=== PATIENT | female | born 2000 | race Caucasian/White ===

== ENCOUNTER 2018-02-16 20:00 | Emergency (ER) | payer OTHER ==
[2018-02-16] MEDS: NS 1,000 ML IV (21:45)
[2018-02-16] MEDS: ONDANSETRON 4MG/2ML VIAL (J2405) IV (21:45)
[2018-02-16 22:19] LABS: BASO % 0.3 % (0.0-1.0); EOS # 0.2 10^3/uL (0.0-0.50); EOS % 1.9 % (0.0-3.0); HEMATOCRIT 39.2 % (36.0-47.0); HEMOGLOBIN 13.4 g/dl (12.0-16.0); IMMATURE GRANULOCYTE % 0.2 % (0-3.0); LYMPH # 2.8 10^3/uL (1.5-6.5); LYMPH % 30.3 % (24.0-44.0); MEAN CORPUSCULAR HEMOGLOBIN 29.5 pg (27.0-33.0); MEAN CORPUSCULAR HGB CONC 34.2 g/dl (32.0-36.5); MEAN CORPUSCULAR VOLUME 86.2 fl (80.0-96.0); MONO # 0.8 10^3/uL (0.0-0.8); MONO % 8.7 % (0.0-5.0); NEUTROPHILS # 5.4 10^3/uL (1.8-7.7); NEUTROPHILS % 58.6 % (36.0-66.0); PLATELET COUNT, AUTOMATED 278 10^3/uL (150-450); RED BLOOD COUNT 4.55 10^6/uL (4.00-5.40); RED CELL DISTRIBUTION WIDTH 12.3 % (11.5-14.5); WHITE BLOOD COUNT 9.2 10^3/uL (4.0-10.0)
[2018-02-16] MEDS: MORPHINE 2 MG/ML 1ML SYRINGE (J2270) IV (22:30)
[2018-02-16 22:37] LABS: KETONE, URINE AUTO RFX NEGATIVE (NEGATIVE); MUCUS, URINE RFX SMALL (NEGATIVE); NITRITE, URINE AUTO RFX NEGATIVE (NEGATIVE); RBC, URINE AUTO RFX 4 /HPF (0-3); SPECIFIC GRAVITY UR AUTO RFX 1.019 (1.002-1.035); SQUAM EPITHELIAL CELL UR AURFX 6 /HPF (0-6)
[2018-02-16 22:40] LABS: HCG, SERUM QUANTITATIVE < 1.0 MIU/ML
[2018-02-16 22:41] LABS: ALBUMIN 4.2 GM/DL (3.2-5.2); ALBUMIN/GLOBULIN RATIO 1.27 (1.00-1.93); ALKALINE PHOSPHATASE 97 U/L (45-117); ALT/SGPT 15 U/L (12-78); AMYLASE 54 U/L (25-115); ANION GAP 8 MEQ/L (8-16); AST/SGOT 8 U/L (7-37); BILIRUBIN,DIRECT < 0.1 MG/DL (0.0-0.2); BILIRUBIN,TOTAL 0.3 MG/DL (0.2-1.0); BLOOD UREA NITROGEN 10 MG/DL (7-18); CARBON DIOXIDE LEVEL 24 MEQ/L (21-32); CHLORIDE LEVEL 108 MEQ/L (98-107); CREATININE FOR GFR 0.75 MG/DL (0.55-1.30); GLUCOSE, FASTING 93 MG/DL (70-100); LIPASE 123 U/L (73-393); SODIUM LEVEL 140 MEQ/L (136-145); TOTAL PROTEIN 7.5 GM/DL (6.4-8.2)
[2018-02-16 22:45] LABS: LEUKOCYTE ESTERASE UR AUTO RFX 3+ (NEGATIVE); WBC, URINE AUTO RFX 28 /HPF (0-3)
[2018-02-16] MEDS: KETOROLAC 30 MG/ML VIAL (J1885) IV (23:05)
[2018-02-16] MEDS: NITROFURANTOIN (MACROBID) 100 MG CAP PO (23:40)
== END 2018-02-16 23:44 | disposition home or self-care (01) ==
LOC: M ED 20:00
DX: N39.0 Urinary tract infection, site not specified (principal); R51 Headache; R11.0 Nausea; F17.200 Nicotine dependence, unspecified, uncomplicated; R56.9 Unspecified convulsions; R01.1 Cardiac murmur, unspecified; Z87.440 Personal history of urinary (tract) infections; F90.9 Attention-deficit hyperactivity disorder, unspecified type; F31.9 Bipolar disorder, unspecified; F43.10 Post-traumatic stress disorder, unspecified; F60.9 Personality disorder, unspecified; Z79.899 Other long term (current) drug therapy; Z91.018 Allergy to other foods
CPT/HCPCS: J2405

== ENCOUNTER 2018-03-18 18:35 | Emergency (ER) | payer OTHER ==
[2018-03-18 20:45] LABS: INFLUENZA A AMPLIFICATION NEGATIVE (NEGATIVE); INFLUENZA B AMPLIFICATION NEGATIVE (NEGATIVE)
== END 2018-03-18 20:16 | disposition home or self-care (01) ==
LOC: M ED 18:35
DX: J06.9 Acute upper respiratory infection, unspecified (principal); F90.9 Attention-deficit hyperactivity disorder, unspecified type; F31.9 Bipolar disorder, unspecified; F43.10 Post-traumatic stress disorder, unspecified; F17.200 Nicotine dependence, unspecified, uncomplicated; Z91.018 Allergy to other foods
CPT/HCPCS: 87502

== ENCOUNTER 2018-04-08 17:31 | Emergency (ER) | payer OTHER ==
[2018-04-08] MEDS: IBUPROFEN 800 MG TAB PO (18:55)
== END 2018-04-08 19:15 | disposition home or self-care (01) ==
LOC: M ED 17:31
DX: S20.222A Contusion of left back wall of thorax, initial encounter (principal); W51.XXXA Accidental striking against or bumped into by another person, initial encounter; Y92.89 Other specified places as the place of occurrence of the external cause; F17.210 Nicotine dependence, cigarettes, uncomplicated; Z86.69 Personal history of other diseases of the nervous system and sense organs; Z91.018 Allergy to other foods
CPT/HCPCS: 99282

== ENCOUNTER 2018-04-09 22:10 | Emergency (ER) | payer OTHER ==
[2018-04-09] MEDS: hydrOXYzine 25 MG TAB PO (22:30)
[2018-04-09 23:03] LABS: HEMATOCRIT 37.1 % (36.0-47.0); HEMOGLOBIN 12.8 g/dl (12.0-15.5); MEAN CORPUSCULAR HEMOGLOBIN 29.8 pg (27.0-33.0); MEAN CORPUSCULAR HGB CONC 34.5 g/dl (32.0-36.5); MEAN CORPUSCULAR VOLUME 86.5 fl (80.0-96.0); PLATELET COUNT, AUTOMATED 316 10^3/uL (150-450); RED BLOOD COUNT 4.29 10^6/uL (4.00-5.40); RED CELL DISTRIBUTION WIDTH 12.6 % (11.5-14.5); WHITE BLOOD COUNT 9.1 10^3/uL (4.0-10.0)
[2018-04-09 23:14] LABS: CONTROL LINE HCG INT CTR LINE PRESENT; HCG, SERUM QUALITATIVE NEGATIVE (NEGATIVE)
[2018-04-09 23:19] LABS: ANION GAP 9 MEQ/L (8-16); BLOOD UREA NITROGEN 16 MG/DL (7-18); CARBON DIOXIDE LEVEL 25 MEQ/L (21-32); CHLORIDE LEVEL 109 MEQ/L (98-107); CREATININE FOR GFR 1.11 MG/DL (0.55-1.30); GLUCOSE, FASTING 94 MG/DL (70-100); POTASSIUM SERUM 3.5 MEQ/L (3.5-5.1); SODIUM LEVEL 143 MEQ/L (136-145)
== END 2018-04-09 23:42 | disposition home or self-care (01) ==
LOC: M ED 22:10
DX: F44.9 Dissociative and conversion disorder, unspecified (principal); F43.20 Adjustment disorder, unspecified; Z91.018 Allergy to other foods; F17.210 Nicotine dependence, cigarettes, uncomplicated
CPT/HCPCS: 84703

== ENCOUNTER 2018-04-11 02:01 | Emergency (ER) | payer OTHER | END 2018-04-11 04:44 | disposition home or self-care (01) | LOC: M ED 02:01 | DX: R10.9 Unspecified abdominal pain (principal); T39.395A Adverse effect of other nonsteroidal anti-inflammatory drugs [NSAID], initial encounter; F60.9 Personality disorder, unspecified; F17.200 Nicotine dependence, unspecified, uncomplicated; Z91.018 Allergy to other foods | CPT/HCPCS: 99284 ==

== ENCOUNTER 2018-05-17 18:42 | Emergency (ER) | payer OTHER | END 2018-05-17 19:22 | disposition left against medical advice (07) | LOC: M ED 18:42 | DX: Z53.29 Procedure and treatment not carried out because of patient's decision for other reasons (principal) ==

== ENCOUNTER 2018-06-12 21:21 | Emergency (ER) | payer OTHER | END 2018-06-12 22:24 | disposition left against medical advice (07) | LOC: M ED 21:21 | DX: Z53.21 Procedure and treatment not carried out due to patient leaving prior to being seen by health care provider (principal) ==

== ENCOUNTER → 2018-07-19 | Outpatient (CLI) | payer OTHER ==
[2018-07-19 17:55] LABS: BASO % 0.2 % (0.0-1.0); EOS # 0.1 10^3/uL (0.0-0.50); EOS % 1.1 % (0.0-3.0); HEMATOCRIT 32.6 % (36.0-47.0); HEMOGLOBIN 11.5 g/dl (12.0-15.5); IMMATURE GRANULOCYTE % 0.4 % (0-3.0); MEAN CORPUSCULAR HEMOGLOBIN 31.3 pg (27.0-33.0); MEAN CORPUSCULAR HGB CONC 35.3 g/dl (32.0-36.5); MEAN CORPUSCULAR VOLUME 88.6 fl (80.0-96.0); MONO # 0.7 10^3/uL (0.0-0.8); NEUTROPHILS # 5.8 10^3/uL (1.8-7.7); NEUTROPHILS % 67.3 % (36.0-66.0); PLATELET COUNT, AUTOMATED 256 10^3/uL (150-450); RED BLOOD COUNT 3.68 10^6/uL (4.00-5.40); RED CELL DISTRIBUTION WIDTH 12.7 % (11.5-14.5); WHITE BLOOD COUNT 8.5 10^3/uL (4.0-10.0)
[2018-07-19 18:20] LABS: AMPHETAMINES URINE REFLEX NEGATIVE (NEGATIVE); BARBITURATES URINE REFLEX NEGATIVE (NEGATIVE); BENZODIAZEPINES URINE REFLEX NEGATIVE (NEGATIVE); CANNABINOIDS URINE REFLEX NEGATIVE (NEGATIVE); COCAINE METABOLITE URINE REFLE NEGATIVE (NEGATIVE); METHADONE URINE REFLEX NEGATIVE (NEGATIVE); OPIATES URINE REFLEX NEGATIVE (NEGATIVE); PHENCYCLIDINE URINE REFLEX NEGATIVE (NEGATIVE)
[2018-07-19 21:21] LABS: CHLAMYDIA DNA AMPLIFICATION NEGATIVE (NEGATIVE); GC DNA AMPLIFICATION NEGATIVE (NEGATIVE)
[2018-07-21 09:18] LABS: RUBELLA IgG QUALITATIVE IMMUNE (IMMUNE)
[2018-07-21 09:35] LABS: HBsAg Prenatal NEGATIVE (NEGATIVE)
[2018-07-21 09:48] LABS: HEPATITIS C VIRUS ABY INDEX 0.1 INDEX (<0.8)
[2018-07-21 09:49] LABS: HIV 1&2 SCREEN CENTAUR NEGATIVE (NEGATIVE)
== END ==
LOC: M SMT 15:51
DX: Z34.82 Encounter for supervision of other normal pregnancy, second trimester (principal); Z3A.14 14 weeks gestation of pregnancy
CPT/HCPCS: 86762

== ENCOUNTER 2018-07-22 21:03 | Emergency (ER) | payer OTHER ==
[2018-07-22] MEDS: diphenhydrAMINE INJ 50MG/ML VIAL (J1200) IV (21:29)
[2018-07-22] MEDS: NS 1,000 ML IV (21:30)
[2018-07-22] MEDS: METOCLOPRAMIDE INJ 10MG/2ML VIAL (J2765) IV (21:30)
[2018-07-22] MEDS: ACETAMINOPHEN 325 MG TAB PO (21:30)
[2018-07-22 21:56] LABS: APPEARANCE, URINE HAZY (CLEAR); BACTERIA, URINE AUTO 2+ (NEGATIVE); BILIRUBIN, URINE AUTO NEGATIVE (NEGATIVE); BLOOD, URINE BLOOD NEGATIVE (NEGATIVE); COLOR, URINE YELLOW (YELLOW); GLUCOSE, URINE (UA) AUTO NEGATIVE (NEGATIVE); KETONE, URINE AUTO NEGATIVE (NEGATIVE); LEUKOCYTE ESTERASE, URINE AUTO 3+ (NEGATIVE); MUCUS, URINE SMALL (NEGATIVE); NITRITE, URINE AUTO NEGATIVE (NEGATIVE); PROTEIN, URINE AUTO NEGATIVE (NEGATIVE); RBC, URINE AUTO 10 /HPF (0-3); SPECIFIC GRAVITY URINE AUTO 1.019 (1.002-1.035); SQUAMOUS EPITHELIAL CELL UR AU 4 /HPF (0-6); WBC, URINE AUTO 12 /HPF (0-3)
[2018-07-22 21:58] LABS: BASO % 0.2 % (0.0-1.0); EOS # 0.1 10^3/uL (0.0-0.50); EOS % 1.6 % (0.0-3.0); HEMATOCRIT 32.8 % (36.0-47.0); HEMOGLOBIN 11.8 g/dl (12.0-15.5); IMMATURE GRANULOCYTE % 0.2 % (0-3.0); LYMPH # 2.5 10^3/uL (1.5-6.5); LYMPH % 28.4 % (24.0-44.0); MEAN CORPUSCULAR HEMOGLOBIN 31.5 pg (27.0-33.0); MEAN CORPUSCULAR VOLUME 87.5 fl (80.0-96.0); MONO # 0.7 10^3/uL (0.0-0.8); MONO % 8.2 % (0.0-5.0); NEUTROPHILS # 5.5 10^3/uL (1.8-7.7); NEUTROPHILS % 61.4 % (36.0-66.0); PLATELET COUNT, AUTOMATED 250 10^3/uL (150-450); RED BLOOD COUNT 3.75 10^6/uL (4.00-5.40); RED CELL DISTRIBUTION WIDTH 12.5 % (11.5-14.5); WHITE BLOOD COUNT 8.9 10^3/uL (4.0-10.0)
[2018-07-22 22:16] LABS: ANION GAP 8 MEQ/L (8-16); BLOOD UREA NITROGEN 11 MG/DL (7-18); CALCIUM LEVEL 9.1 MG/DL (8.5-10.1); CARBON DIOXIDE LEVEL 24 MEQ/L (21-32); CHLORIDE LEVEL 110 MEQ/L (98-107); CREATININE FOR GFR 0.46 MG/DL (0.55-1.30); GLUCOSE, FASTING 91 MG/DL (70-100); POTASSIUM SERUM 3.8 MEQ/L (3.5-5.1); SODIUM LEVEL 142 MEQ/L (136-145)
[2018-07-22] MEDS: NITROFURANTOIN (MACROBID) 100 MG CAP PO (22:45)
== END 2018-07-22 23:26 | disposition home or self-care (01) ==
LOC: M ED 21:03
DX: O23.12 Infections of bladder in pregnancy, second trimester (principal); O99.352 Diseases of the nervous system complicating pregnancy, second trimester; R51 Headache; R56.9 Unspecified convulsions; O99.282 Endocrine, nutritional and metabolic diseases complicating pregnancy, second trimester; E86.0 Dehydration; O99.42 Diseases of the circulatory system complicating childbirth; R01.1 Cardiac murmur, unspecified; O99.62 Diseases of the digestive system complicating childbirth; K59.00 Constipation, unspecified; O99.332 Smoking (tobacco) complicating pregnancy, second trimester; F17.200 Nicotine dependence, unspecified, uncomplicated; Z3A.15 15 weeks gestation of pregnancy
CPT/HCPCS: J1200

== ENCOUNTER 2018-08-08 01:08 | Emergency (ER) | payer OTHER, MEDICAID, SELFPAY ==
[2018-08-08] MEDS: ACETAMINOPHEN TAB 650MG DOSE (2X325MG) PO (04:00)
== END 2018-08-08 05:20 | disposition home or self-care (01) ==
LOC: M ED 01:08
DX: O99.512 Diseases of the respiratory system complicating pregnancy, second trimester (principal); J06.9 Acute upper respiratory infection, unspecified; Z91.018 Allergy to other foods; Z3A.18 18 weeks gestation of pregnancy
CPT/HCPCS: 87880

== ENCOUNTER → 2018-08-17 | Outpatient (CLI) | payer OTHER ==
[2018-08-17 19:29] LABS: FREE T4 1.02 NG/DL (0.78-1.33); THYROID STIMULATING HORMONE 0.797 uIU/ML (0.463-3.98)
== END ==
LOC: M SMT 15:49
DX: O26.819 Pregnancy related exhaustion and fatigue, unspecified trimester (principal)
CPT/HCPCS: 84443

== ENCOUNTER → 2018-08-18 | Outpatient (CLI) | payer OTHER | LOC: M RAD 14:16 | DX: Z34.82 Encounter for supervision of other normal pregnancy, second trimester (principal) | CPT/HCPCS: 76816 ==

== ENCOUNTER → 2018-10-09 | Outpatient (CLI) | payer OTHER ==
[2018-10-09 15:46] LABS: HEMATOCRIT 32.7 % (36.0-47.0); HEMOGLOBIN 11.2 g/dl (12.0-15.5); MEAN CORPUSCULAR HEMOGLOBIN 31.8 pg (27.0-33.0); MEAN CORPUSCULAR HGB CONC 34.3 g/dl (32.0-36.5); MEAN CORPUSCULAR VOLUME 92.9 fl (80.0-96.0); PLATELET COUNT, AUTOMATED 325 10^3/uL (150-450); RED BLOOD COUNT 3.52 10^6/uL (4.00-5.40); RED CELL DISTRIBUTION WIDTH 12.7 % (11.5-14.5); WHITE BLOOD COUNT 13.3 10^3/uL (4.0-10.0)
[2018-10-09 16:07] LABS: GLUCOSE CHALLENGE TEST 1 HOUR 112 MG/DL (LESS THAN 140)
[2018-10-10 08:30] LABS: TYPE AND SCREEN 1 1
== END ==
LOC: M RAD 13:25
DX: Z36.89 Encounter for other specified antenatal screening (principal); Z3A.25 25 weeks gestation of pregnancy
CPT/HCPCS: 76816

== ENCOUNTER → 2018-11-14 | Outpatient (CLI) | payer OTHER ==
[~2018-11-14] MED LIST: AFRI0.0511; BENZ200C70 PO; FLON1SPR NARES; IBUP80TA PO; MACR100C43 PO; PREN1CHW4 PO; ZOFR4TAB14 PO
--- NOTE | 2018-11-15 06:46 | REP ---
Clinical: Anatomical evaluation. Comparison: 10/09/2018 . Findings: Examination demonstrates a single live intrauterine in cephalic presentation. motion is identified by technologist. Placenta is noted anterior and grade grade III without evidence for placenta previa or abruption. Amniotic fluid volume is normal. Cervix measures 3.5 cm in length and appears closed. No evidence for nuchal cord. Gestational age by LMP 31 weeks 4 days with DINA 01/12/2019 . Gestational age by current measurements 29 weeks 6 days with DINA 01/24/2019 . FHR equals 128 beats per minute. Estimated weight 1441 grams ( 6th percentile). Anatomical assessment demonstrates normal structures including cranium, cavum, cerebellum/posterior fossa, lungs, four-chamber heart/ventricular outflow tracts, diaphragm, stomach, cord insertion/three-vessel cord, kidneys/bladder, spine, and extremities. Impression: 1. Single live advanced gestation in cephalic presentation demonstrating relatively appropriate interval growth. 2. In conjunction with prior examination anatomical assessment is complete and normal. 3. Grade III placenta. Electronically Signed by Derrick Shields MD 11/15/2018 06:35 A
== END ==
LOC: M RAD 11:19
PROVIDERS: ATTEND Specialist
DX: Z34.82 Encounter for supervision of other normal pregnancy, second trimester (principal)

== ENCOUNTER → 2018-11-17 | Outpatient (CLI) | payer OTHER ==
--- NOTE | 2018-11-17 13:51 | REP ---
Obstetric sonography: History: Supervision of for biophysical profile. Third trimester study. Findings: Limited obstetric sonography demonstrates a viable single intrauterine gestation in a cephalic lie. Placenta is anterior and right sided without evidence of previa, grade III. heart rate is recorded at 126 beats per minute. Closed cervical length is 2.6 cm measured transabdominally. Amniotic fluid is subjectively normal. ABRAHAM is normal 12.0 cm. Biophysical profile score is eight out of a possible eight. SD ratio is slightly elevated at 3.84 (2.47-3.47). Electronically Signed by Neville Robison MD 11/17/2018 01:42 P
== END ==
LOC: M RAD 12:41
PROVIDERS: ATTEND Advanced Practice Midwife
DX: O36.5931 Maternal care for other known or suspected poor fetal growth, third trimester, fetus 1 (principal)

== ENCOUNTER 2018-12-11 19:32 | Outpatient (CLI) | payer OTHER ==
[~2018-12-11] VITALS: Ht 154.9 cm; Wt 53.3 kg
[2018-12-11 19:51] VITALS: BP 100/65
[2018-12-11] MEDS ORDERED: ZOFR4TAB16 PO (19:57)
[2018-12-11] MEDS ORDERED: OMEP40CA2 PO (19:59)
[2018-12-11] MEDS ORDERED: BETAMETHASONE SOLUSPAN 6MG/ML INJ 5ML (J0702) IM ONE (23:00)
[2018-12-11 23:15] LABS: APPEARANCE, URINE CLOUDY (CLEAR); BACTERIA, URINE AUTO 1+ (NEGATIVE); BILIRUBIN, URINE AUTO NEGATIVE (NEGATIVE); BLOOD, URINE BLOOD NEGATIVE (NEGATIVE); COLOR, URINE AMBER (YELLOW); GLUCOSE, URINE (UA) AUTO NEGATIVE (NEGATIVE); KETONE, URINE AUTO NEGATIVE (NEGATIVE); LEUKOCYTE ESTERASE, URINE AUTO 1+ (NEGATIVE); MUCUS, URINE LARGE (NEGATIVE); NITRITE, URINE AUTO NEGATIVE (NEGATIVE); PROTEIN, URINE AUTO NEGATIVE (NEGATIVE); RBC, URINE AUTO 2 /HPF (0-3); SPECIFIC GRAVITY URINE AUTO 1.019 (1.002-1.035); SQUAMOUS EPITHELIAL CELL UR AU 17 /HPF (0-6); WBC, URINE AUTO 5 /HPF (0-3)
--- NOTE | 2018-12-11 23:24 | REPVR ---
EXAM: US After First Trimester, Transabdominal EXAM DATE/TIME: 12/11/2018 9:37 PM CLINICAL HISTORY: 18 years old, female; Signs and symptoms; Lmp or gestational age (in weeks): 35w 3d; Antepartum complications; Other: growth restriciton, noncompliance with care; ; Additional info: Iugr TECHNIQUE: Real-time transabdominal obstetrical ultrasound of the maternal pelvis and a second or third trimester with image documentation. COMPARISON: US OBS FOLL UP OR REPEAT EACH GES 11/14/2018 11:47 AM FINDINGS: GESTATION: Gestational age by first ultrasound is 35 weeks 3 days with DINA of 01/12/19. Gestation: Single live intrauterine in vertex presentation. Heart rate: heart rate is 128 beats per minute. Presentation: Single live intrauterine in vertex position corresponding with 33 weeks 4days with DINA of 01/25/19, discordant with the first ultrasound. Placenta: Placents is anterior grade 3. No evidence of abruption or previa. Amniotic fluid: Amniotic fluid index: 2, (11.5 cm); normal. Head, face, and neck: Cranial, cavum, face profile, lungs, 4 chamber heart, left ventricular outflow tract, diaphragm, bladder, spine, and three-vessel cord are seen and appears to be unremarkable. Cord drapping is seen over the neck. Nuchal cord can not be ruled out. BIOMETRY: Estimated due date: Estimated weight: weight is 2025 mg, (4 lbs. 7 oz.). Less than 3% for 35 weeks 3 days. Biparietal diameter: BPD is 8.1 cm. Head circumference: Head circumference is 30.5 cm. Abdominal circumference: Abdominal circumference is 27.0 cm. Femur length: Femur length is 6.7 cm. DOPPLER: Middle Cerebral artery Doppler: Peak systolic velocity in the middle cerebral artery is 53.2 cm of second and end-diastolic velocity is 14.0 cm/s with SD ratio of 3.75 and resistive index of 0.73. Umbilical artery Doppler: Peak systolic velocity in the umbilical mid cord is 43.8 cm/s end diastolic velocity is 11.8 cm/s and resistive index of 0.73. Systolic/diastolic ratio is 3.71, (normal 2.0-3.0). MATERNAL: Uterus: Unremarkable. Cervix: Cervical length is 3.5 cm. Biophysical profile: Breathin Moment : 2 Tone : 2 ABRAHAM: 2 IMPRESSION: Systolic/diastolic ratio of the fetus is elevated. Less than expected growth with weight percentile at 3%. Findings are highly suggestive of intrauterine growth retardation. Single live intrauterine in vertex position corresponding with 33 weeks 4days with DINA of 01/25/19, discordant with the first ultrasound. Biophysical profile is 8/8 Cervical length is 3.5 cm. Electronically signed by: Abigail Talamantes On 12/11/2018 23:24:15 PM
--- NOTE | 2018-12-12 01:06 | IPNPDOC ---
Text Note Date of Service The patient was seen on 12/12/18. NOTE Subjective: Patient is a 18-year-old female who is a at 35.3 weeks gestation with an DINA of 01/12/2019. Her has been complicated by late entry to care, poor compliance with care, smoking, and intrauterine growth restriction. Her last growth scan showed elevated cord dopplers and growth in the 6%. She presents to L&D with complaints of hip pain. She reports the pain is random and it is like her hip joints give out. She reports it being difficult to stand, walk, or bend when this occurs. The patient also reports that she is having urinary frequency. She denies contractions, vaginal bleeding, or leaking of fluid. The patient reports active movement. Objective: VS and labs: see below. FHR: 120, moderate variability, positive accelerations, no decelerations. Contractions: none noted. Abdomen: gravid and soft to palpation. Assessment: IUP at 35.3 weeks gestation, IUGR, bilateral hip pain, non- compliance with pain Plan: Urine obtained for culture. GBS obtained. Dr. Winston consulted on plan of care. Betamethasone IM injection given. She is to return tomorrow night for her second done. The patient is to have cord dopplers done twice per week and a BPP weekly, an office visit weekly with and NST. She is scheduled for an Induction of labor on at 0600. The reason for induction, continued obstetrical care and induction process was thoroughly discussed with patient and her boyfriend. BPP and growth done today as patient has been non-compliant with her care. Patient verbalized understanding. Reviewed comfort measures for hip pain. She is to be discharged to home with her boyfriend. VS,Fishbone, I+O VS, Fishbone, I+O Vital Signs Date Time Temp Pulse Resp B/P (MAP) Pulse Ox O2 Delivery O2 Flow Rate FiO2 12/11/18 19:51 97.3 70 18 100/65 (77) Item Value Date Time Urine Color WON 12/11/182258 Urine Appearance CLOUDY H 12/11/182258 Urine pH 6.0 UNITS 12/11/182258 Urine Specific [place] 1.019 12/11/182258 Urine Protein NEGATIVE mg/dL 12/11/182258 Urine Glucose (UA) NEGATIVE mg/dL 12/11/182258 Urine Ketones NEGATIVE mg/dL 12/11/182258 Urine Blood NEGATIVE 12/11/182258 Urine Nitrite NEGATIVE 12/11/182258 Urine Bilirubin NEGATIVE 12/11/182258 Urine Urobilinogen 4.0 mg/dL H 12/11/182258 Urine Leukocyte Esterase 1+ H 12/11/182258 Urine WBC (Auto) 5 /HPF H 12/11/182258 Urine RBC (Auto) 2 /HPF 12/11/182258 Urine Hyaline Casts (Auto) 0 /LPF 12/11/182258 Urine Bacteria (Auto) 1+ H 12/11/182258 Urine Squamous Epithelial Cells 17 /HPF 12/11/182258 Urine Mucus (Auto) LARGE 12/11/182258 EXAM: US After First Trimester, Transabdominal EXAM DATE/TIME: 12/11/2018 9:37 PM CLINICAL HISTORY: 18 years old, female; Signs and symptoms; Lmp or gestational age (in weeks): 35w 3d; Antepartum complications; Other: growth restriciton, noncompliance with care; ; Additional info: Iugr TECHNIQUE: Real-time transabdominal obstetrical ultrasound of the maternal pelvis and a second or third trimester with image documentation. COMPARISON: US OBS FOLL UP OR REPEAT EACH GES 11/14/2018 11:47 AM FINDINGS: GESTATION: Gestational age by first ultrasound is 35 weeks 3 days with DINA of 01/12/19. Gestation: Single live intrauterine in vertex presentation. Heart rate: heart rate is 128 beats per minute. Presentation: Single live intrauterine in vertex position corresponding with 33 weeks 4days with DINA of 01/25/19, discordant with the first ultrasound. Placenta: Placents is anterior grade 3. No evidence of abruption or previa. Amniotic fluid: Amniotic fluid index: 2, (11.5 cm); normal. Head, face, and neck: Cranial, cavum, face profile, lungs, 4 chamber heart, left ventricular outflow tract, diaphragm, bladder, spine, and three-vessel cord are seen and appears to be unremarkable. Cord drapping is seen over the neck. Nuchal cord can not be ruled out. BIOMETRY: Estimated due date: Estimated weight: weight is 2025 mg, (4 lbs. 7 oz.). Less than 3% for 35 weeks 3 days. Biparietal diameter: BPD is 8.1 cm. Head circumference: Head circumference is 30.5 cm. Abdominal circumference: Abdominal circumference is 27.0 cm. Femur length: Femur length is 6.7 cm. DOPPLER: Middle Cerebral artery Doppler: Peak systolic velocity in the middle cerebral artery is 53.2 cm of second and end-diastolic velocity is 14.0 cm/s with SD ratio of 3.75 and resistive index of 0.73. Umbilical artery Doppler: Peak systolic velocity in the umbilical mid cord is 43.8 cm/s end diastolic velocity is 11.8 cm/s and resistive index of 0.73. Systolic/diastolic ratio is 3.71, (normal 2.0-3.0). MATERNAL: Uterus: Unremarkable. Cervix: Cervical length is 3.5 cm. Biophysical profile: Breathin Moment : 2 Tone : 2 ABRAHAM: 2 IMPRESSION: Systolic/diastolic ratio of the fetus is elevated. Less than expected growth with weight percentile at 3%. Findings are highly suggestive of intrauterine growth retardation. Single live intrauterine in vertex position corresponding with 33 weeks 4days with DINA of 01/25/19, discordant with the first ultrasound. Biophysical profile is 07/05 Cervical length is 3.5 cm. Electronically signed by: Abigail Talamantes On 12/11/2018 23:24:15 PM JUAN HANDY CNM Dec 12, 2018 01:06
== END 2018-12-11 23:38 | disposition home or self-care (01) ==
LOC: M LDO 19:32
PROVIDERS: ATTEND Advanced Practice Midwife
DX: O99.89 Other specified diseases and conditions complicating pregnancy, childbirth and the puerperium (principal); M25.551 Pain in right hip; M25.552 Pain in left hip; O36.5930 Maternal care for other known or suspected poor fetal growth, third trimester, not applicable or unspecified; O09.33 Supervision of pregnancy with insufficient antenatal care, third trimester; O99.333 Smoking (tobacco) complicating pregnancy, third trimester; F17.200 Nicotine dependence, unspecified, uncomplicated; Z3A.35 35 weeks gestation of pregnancy; Z91.19 Patient's noncompliance with other medical treatment and regimen
CPT/HCPCS: 59025; 76816; 76819; 76820; 76821; 81001; 87081; 87086; 96372; J0702

== ENCOUNTER 2018-12-12 22:18 | Inpatient (IN) | payer OTHER ==
[~2018-12-12] VITALS: Ht 152.4 cm; Wt 53.9 kg
[~2018-12-12 22:18] MED LIST changes: +OMEP40CA2 PO; +ZOFR4TAB16 PO
[2018-12-12 22:35] VITALS: BP 105/55
[2018-12-12] MEDS ORDERED: BETAMETHASONE SOLUSPAN 6MG/ML INJ 5ML (J0702) IM ONE (23:45)
[2018-12-13] VITALS (9 sets, daily range): BP systolic 89–135; BP diastolic 49–83
[2018-12-13] MEDS ORDERED: LACTATED RINGER'S 1000 ML IV STA (00:03)
[2018-12-13] MEDS ORDERED: BICITRA 30ML SOLN UDC As Ordered ONE (00:10)
[2018-12-13] MEDS ORDERED: ceFAZolin 2 GM/D5W 50 ML IV BAG (J0690 PER 500MG) As Ordered ONE (00:10)
[2018-12-13] MEDS ORDERED: BICITRA 30ML SOLN UDC PO ONE (00:15)
[2018-12-13] MEDS ORDERED: ONDANSETRON 4MG/2ML VIAL (J2405) As Ordered ONE (00:18)
[2018-12-13] MEDS ORDERED: OXYTOCIN INJ 10 UNITS/ML VIAL (J2590) As Ordered ONE ×2 (00:18→00:19)
[2018-12-13] MEDS ORDERED: dexameTHASONE 4 MG/ML 1ML VIAL (J1100) As Ordered ONE (00:19)
--- NOTE | 2018-12-13 00:21 | NUR ---
L&D H&P HPI: 18 year old at 35+4 weeks estimated gestation. Expected date of confinement: 01/12/2019. dated by, a 16 week ultrasound. Presents today for a second dose of betamethasone; first dose was given yesterday evening. She is being followed closely for intrauterine growth restriction. Most recent ultrasound on 12/11/18 revealed an EFW of less than 3rd percentile (2025g) and an elevated SD ratio. Denies vaginal bleeding, loss of fluid, or uterine contractions. Reports regular movement. course complicated by poor compliance with visits. Pt has been incarcerated in the recent past. labs: Blood type O neg, Rhogam given: 11/06/18 antibody screen negative, rubella immune, VDRL nonreactive , hepatitis B surface antigen negative, HIV negative, hepatitis C antibody negative, GC/CT negative, aneuploidy/maternal serum screening: not done, 1 hour glucose challenge test: 12, GBS unknown. Radiology/OB US: no anomalies or placental abnormalities detected. 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 OB history: G1 Social history: +tobacco use during , does not admit to any other drug use. Family history: psychiatric Objective Vitals: Normotensive, normal heart rate, afebrile Heart: Regular rate and rhythm. No murmurs, rubs or gallops. Lungs: Clear to auscultation bilaterally. No wheezes, crackles, rales or rhonchi. Abdomen: Uterine fundal height consistent with dates. No guarding or rebound tenderness. Extremities: No clubbing, cyanosis or edema. Normal deep tendon reflexes. Sterile vaginal exam: deferred External monitoring: heart rate category 2; persistent bradycardia, moderate variability. BL 100-105bpm. Tocodynamometer: contractions not present Assessment/Plan 18 year old at 35+4 weeks gestation. Diagnosis: severe growth restriction with abnormal UA doppler velocimetry and non-reassuring heart rate tracing (prolonged bradycardia). Reassuring and maternal status. -Admit to labor and delivery with routine preop labs and orders -Arrangements made for section upon her admission. See operative/delivery note. -NICU and Anesthesia notified. Dr. Leo Winston, DO, FACOG
[2018-12-13 00:42] LABS: HEMATOCRIT 30.8 % (36.0-47.0); HEMOGLOBIN 10.6 g/dl (12.0-15.5); MEAN CORPUSCULAR HEMOGLOBIN 30.6 pg (27.0-33.0); MEAN CORPUSCULAR HGB CONC 34.4 g/dl (32.0-36.5); PLATELET COUNT, AUTOMATED 327 10^3/uL (150-450); RED BLOOD COUNT 3.46 10^6/uL (4.00-5.40); WHITE BLOOD COUNT 15.6 10^3/uL (4.0-10.0)
[2018-12-13 00:49] LABS: AMPHETAMINES URINE REFLEX NEGATIVE (NEGATIVE); BARBITURATES URINE REFLEX NEGATIVE (NEGATIVE); BENZODIAZEPINES URINE REFLEX NEGATIVE (NEGATIVE); CANNABINOIDS URINE REFLEX NEGATIVE (NEGATIVE); COCAINE METABOLITE URINE REFLE NEGATIVE (NEGATIVE); METHADONE URINE REFLEX NEGATIVE (NEGATIVE); OPIATES URINE REFLEX NEGATIVE (NEGATIVE); PHENCYCLIDINE URINE REFLEX NEGATIVE (NEGATIVE)
[2018-12-13] MEDS ORDERED: fentaNYL 100 MCG/2 ML INJECTION (J3010) As Ordered ONE (01:01)
[2018-12-13] MEDS ORDERED: KETOROLAC 60 MG/2 ML VIAL (J1885) As Ordered ONE (01:06)
[2018-12-13] MEDS ORDERED: OXYTOCIN DRIP 30 UNITS in APPROPRIATE DILUENT 1 EA IV SCH (01:35)
[2018-12-13] MEDS ORDERED: BUPIVACAINE/DEXTROSE 0.75% 2 ML AMP As Ordered ONE (01:39)
--- NOTE | 2018-12-13 01:44 | NUR ---
Operative Note Date of procedure: 12/13/2018 Procedure:, Primary low-transverse section Anesthesia: Spinal Preoperative diagnosis: 35+4 weeks gestation, severe growth restriction, nonreassuring heart rate tracing Postoperative diagnosis: Same as preoperative diagnosis Indication: Nonreassuring heart rate tracing Primary surgeon: Leo Winston D.O., Tim Grey Glazing Machine Operator: Velma Gannon MD (essential for surgical site exposure and assistance with delivery of baby through hysterotomy) Estimated blood loss:500 ml IV fluids administered: 1200 ml crystalloid Drains: Bernard catheter. Urine output:125 ml data: Apgars 7 and 8. Birthweight 1990g, 4lbs 6oz. Preoperative/prophylactic antibiotics: Ancef 2 g IV (given within 30 minutes prior to surgical start time). Intraoperative findings: cephalic presentation. Specimen(s): placenta Procedure: The patient was counseled and consented on the risks, benefits, indications and alternatives of the procedure. Informed consent was obtained and placed in the c cmdonald. She was taken to the operating room with an IV running. She was placed on the operating table. Spinal anesthesia was administered without any difficulty and found to be adequate. She was placed in the dorsal supine position with a leftward tilt. Sequential compression devices were placed on the lower extremities. A Bernard catheter was placed under sterile conditions. She was sterilely prepped and draped. A surgical timeout was performed per protocol. Spinal anesthesia was again found to be adequate. Using the 10 blade a Pfannenstiel incision was performed. The 10 blade was used to dissect down to the level of the rectus sheath fascia. The rectus sheath fas pema was incised at the midline, and the fascial incision was extended with Herman scissors. Alice clamps were used to grasp the superior and inferior aspect of the fascial incision and the rectus muscle bellies were dissected off sharply and bluntly. The midline was identified and the rectus muscle bellies were manually . The peritoneum was identified and clamped with hemostats and elevated. The peritoneum was then incised with Metzenbaum scissors. Entry into the intraperitoneal cavity was achieved. The peritoneal opening was extended with manual stretch . There was good visualization of both the bladder and the lower uterine segment. The bladder retractor was placed. The vesicouterine peritoneum was dissected with Metzenbaum scissors and blunt dissection. Bladder retractor was repositioned. A low transverse uterine incision was made with a new 10 blade. The hysterotomy was extended with manual stretch. The amniotic sac was protruding and then artificially ruptured. Clear amniotic fluid was noted. The baby's head delivered through the hysterotomy with vacuum assistance (1 pull , no pop-offs). The remainder of the body delivered with ease. The cord was doubly clamped and cut and the baby was handed off to awaiting care. See data above. Cord blood was obtained. Cord gases were obtained. The placenta was manually removed and noted to be fully intact. The uterus was exteriorized. The intrauterine cavity was cleared of all clot and debris with a laparotomy sponge. The hysterotomy was closed with 0 Vicryl in running, locked fashion. A second imbricating closure was performed over the initial layer closure using 0 Vicryl. The hysterotomy was noted to be hemostatic. The posterior cul-de-sac was irrigated and cleared of all clot and debris. The uterus was replaced back into the abdomen. The paracolic gutters were cleared of all clot and debris with damp laparotomy sponges. The hysterotomy is reinspected and noted to be hemostatic. Sponge, needle and instrument counts were correct. The peritoneum was closed with 3-0 Vicryl in running fashion. The rectus muscle bellies were hemostatic. The fascia was closed with 0 Vicryl in running fashion. Sponge, needle and instrument counts were again correct. The subcutaneous layer was irrigated. Small subcutaneous bleeders were cauterized with Bovie. The subcutaneous layer was reapproximated with 3-0 Vicryl in running fashion. The skin was closed with 3-0 Monocryl in subcuticular fashion. A bandage was placed over the closed incision. The final sponge, instrument and needle count was correct. She tolerated the entire procedure very well. She was transferred to the PACU in good and stable condition. Dr. Leo Winston D.O., F.A.C.O.G
[2018-12-13] MEDS ORDERED: RHOGAM 300 MCG (1500 IU) INJ (J2790) IM SCH (01:45)
[2018-12-13] MEDS ORDERED: PROMETHAZINE 25 MG TAB PO PRN (01:45)
[2018-12-13] MEDS ORDERED: MEASLES,MUMPS,RUBELLA VACCINE INJ (MMR-II) (90707) SC SCH (01:45)
[2018-12-13] MEDS ORDERED: ONDANSETRON 4MG/2ML VIAL (J2405) IV PRN ×2 (01:45→02:00)
[2018-12-13 01:48] LABS: CORD GAS ABE A -3.5; CORD GAS HCO3 A 25.1 MEQ/L; CORD GAS O2 SAT A 54.8 %; CORD GAS PCO2 A 60.9 mmHg; CORD GAS PH A 7.233 UNITS; CORD GAS PO2 A 26.4 mmHg; CORD GAS SBC A 20.6 MEQ/L
[2018-12-13 01:49] LABS: CORD GAS ABE V -3.8; CORD GAS HCO3 V 21.2 MEQ/L; CORD GAS O2 SAT V 97.9 %; CORD GAS PCO2 V 38.8 mmHg; CORD GAS PH V 7.356 UNITS; CORD GAS PO2 V 82.2 mmHg; CORD GAS SBC V 21.3 MEQ/L; CORD GAS TCO2 V 22.4 MEQ/L
[2018-12-13] MEDS ORDERED: fentaNYL 100 MCG/2 ML INJECTION (J3010) IV PRN (02:00)
[2018-12-13] MEDS ORDERED: OXYTOCIN 30 UNITS IN 0.9% NaCl 500ML IV BAG (J2590) As Ordered ONE (02:00)
[2018-12-13] MEDS ORDERED: MEPERIDINE INJ 25 MG/ML VIAL (J2175) IV PRN (02:00)
[2018-12-13] MEDS ORDERED: PERCOCET 5MG/325MG TAB PO PRN (02:00)
[2018-12-13] MEDS ORDERED: METOCLOPRAMIDE INJ 10MG/2ML VIAL (J2765) IV PRN (02:00)
[2018-12-13] MEDS: LR 1,000 ML IV SCH ×2 (02:06→09:35)
[2018-12-13] MEDS ORDERED: PERCOCET PO (03:18)
[2018-12-13] MEDS ORDERED: IBUP80TA PO (03:19)
[2018-12-13] MEDS ORDERED: COLA100C5 PO (03:19)
[2018-12-13] MEDS ORDERED: PILL CRUSHER/CUTTER 1 EACH XX PRN (04:30)
[2018-12-13] MEDS: PERCOCET 5MG/325MG TAB PO PRN ×3 (04:41→19:33)
--- NOTE | 2018-12-13 05:59 | NUR ---
Postoperative Day 1 Status post primary low transverse section. Subjective Pain is well controlled. Lochia is decreasing and minimal. Voiding spontaneously. Tolerating a regular diet. Ambulating without any assistance. Denies any subjective fever, chills, nausea, vomiting, headache, visual changes, shortness of breath, chest pain. Objective Vitals: Normotensive, normal heart rate, afebrile, adequate urine output. Heart: regular, rate, and rhythm. no murmurs/gallops/rubs Lungs: clear to auscultation bilaterally, no wheezes/crackles/rales/ronchi Abd: soft, nontender, nondistended, uterine fundus is 2cm below umbilicus and firm Incision: clean, dry, intact Ext: no significant edema, nontender, negative Magdaleno's bilaterally. Assessment/Plan: Postoperative day 1 status post primary low transverse section. Recovering well. Hemodynamically stable, afebrile, good pain control. -Routine care -Discharge to home on POD 2 or 3 -Routine infectious, fever, pain, and bleeding precautions reviewed -Incision/wound care precautions reviewed. Radha LernerO., F.A.C.O.G.
[2018-12-13] MEDS: KETOROLAC 30 MG/ML VIAL (J1885) IV SCH ×3 (07:03→18:42)
[2018-12-13] MEDS: PRENATAL VITAMINS CHEWABLE TABLET PO SCH (11:31)
[2018-12-13] MEDS: DOCUSATE SODIUM 100 MG CAP PO SCH ×2 (11:32→21:00)
[2018-12-13] MEDS: NICOTINE POLACRILEX 2 MG GUM PO PRN ×2 (18:37→21:24)
[2018-12-14] MEDS: PERCOCET 5MG/325MG TAB PO PRN ×2 (02:02→14:46)
[2018-12-14 02:36] VITALS: BP 97/52
[2018-12-14 06:46] VITALS: BP 108/57
[2018-12-14 06:50] LABS: HEMATOCRIT 29.6 % (36.0-47.0); HEMOGLOBIN 10.2 g/dl (12.0-15.5); MEAN CORPUSCULAR HEMOGLOBIN 31.2 pg (27.0-33.0); MEAN CORPUSCULAR HGB CONC 34.5 g/dl (32.0-36.5); MEAN CORPUSCULAR VOLUME 90.5 fl (80.0-96.0); PLATELET COUNT, AUTOMATED 307 10^3/uL (150-450); RED BLOOD COUNT 3.27 10^6/uL (4.00-5.40); WHITE BLOOD COUNT 12.8 10^3/uL (4.0-10.0)
[2018-12-14] MEDS: NICOTINE POLACRILEX 2 MG GUM PO PRN ×2 (08:17→17:25)
[2018-12-14] MEDS: DOCUSATE SODIUM 100 MG CAP PO SCH ×2 (08:17→21:29)
[2018-12-14] MEDS: PRENATAL VITAMINS CHEWABLE TABLET PO SCH (08:17)
[2018-12-14] MEDS: IBUPROFEN 800 MG TAB PO PRN ×3 (08:17→21:29)
[2018-12-14 18:00] VITALS: BP 119/67
[2018-12-14 22:00] VITALS: BP 117/59
[2018-12-15 02:00] VITALS: BP 106/57
[2018-12-15] MEDS: PERCOCET 5MG/325MG TAB PO PRN (02:55)
[2018-12-15 06:00] VITALS: BP 112/66
--- NOTE | 2018-12-15 07:35 | NUR ---
POD#2 S: Doing well w/o complaints. Decreasing lochia, pain moderately controlled, + voids, limited ambulation. O: vss, AF Gen: well appearing abd: soft, nttp with [id number] incision: Dressed A/P: POD#2 s/p 1LTCS-currently stable -continue routine /postoperative care. Need further recovery time. -d/c plans for tomorrow Marlene Roberts MD
[2018-12-15] MEDS: DOCUSATE SODIUM 100 MG CAP PO SCH ×2 (08:04→23:19)
[2018-12-15] MEDS: PRENATAL VITAMINS CHEWABLE TABLET PO SCH (08:04)
[2018-12-15] MEDS: IBUPROFEN 800 MG TAB PO PRN ×3 (08:05→23:20)
[2018-12-15] MEDS: NICOTINE POLACRILEX 2 MG GUM PO PRN (08:05)
[2018-12-15 10:00] VITALS: BP 124/74
[2018-12-15] MEDS: LORazepam 1 MG TAB PO PRN ×2 (14:28→18:25)
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
[2018-12-15 18:00] VITALS: BP 125/73
[2018-12-16] MEDS ORDERED: LORazepam 1 MG TAB PO PRN
[2018-12-16] MEDS ORDERED: hydrOXYzine 25 MG TAB PO PRN (01:15)
[2018-12-16 06:13] VITALS: BP 96/54
[2018-12-16] MEDS ORDERED: HYDR-3363 PO (07:56)
[2018-12-16] MEDS: PRENATAL VITAMINS CHEWABLE TABLET PO SCH (08:45)
[2018-12-16] MEDS: DOCUSATE SODIUM 100 MG CAP PO SCH (08:45)
[2018-12-16] MEDS: IBUPROFEN 800 MG TAB PO PRN (08:46)
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
--- NOTE | 2018-12-18 21:57 | DSES ---
DATE OF ADMISSION: 12/12/2018 DATE OF DISCHARGE: 12/16/2018 HISTORY: A 18-year-old G1 at 35-3/7 weeks gestation presents to the triage unit for a second dose of betamethasone with a history of intrauterine growth restriction (IUGR). During routine monitoring, she was noted to have bradycardia present and nonreassuring testing. The decision was made to proceed with section due to nonreassuring testing in the face of IUGR. On 12/13/2018 the patient underwent primary low transverse section for a 4-pound 6-ounce . The procedure was uncomplicated. Her postoperative course was significant for mental health issues. The patient has a longstanding history of mental health problems and is not currently getting any treatment. She is acting on her severe anxiety. She was initially given Ativan to help with her agitation. She had adequate return of bladder and bowel function. Her postoperative hemoglobin was normal. She was deemed stable for discharge on postoperative day #3. The baby was still in the intensive care unit (NICU) at the time of discharge. ADMISSION DIAGNOSIS: , 35-1/2 weeks, severe intrauterine growth restriction. POSTOPERATIVE DIAGNOSIS: , 35-1/2 weeks, severe intrauterine growth restriction. PROCEDURE: Primary low transverse section. DISPOSITION: Patient will followup with Dr. Winston in 2 weeks. Instructions were reviewed.
== END 2018-12-16 12:15 | disposition home or self-care (01) | DRG 540 ==
LOC: M LDO 22:18 → M LDI 23:53 → M OBS 12-13 03:36
PROVIDERS: ADMIT Obstetrics & Gynecology; ATTEND Obstetrics & Gynecology
PROC: 10D00Z1 Extraction of Products of Conception, Low, Open Approach (ICD-10-PCS; principal; 2018-12-13 00:26)
DX: O36.5930 Maternal care for other known or suspected poor fetal growth, third trimester, not applicable or unspecified (principal); F17.210 Nicotine dependence, cigarettes, uncomplicated; Z3A.35 35 weeks gestation of pregnancy; O99.334 Smoking (tobacco) complicating childbirth; O76 Abnormality in fetal heart rate and rhythm complicating labor and delivery; Z37.0 Single live birth; O99.344 Other mental disorders complicating childbirth; F63.81 Intermittent explosive disorder; F90.9 Attention-deficit hyperactivity disorder, unspecified type

== ENCOUNTER → 2019-02-23 | Outpatient (REF) | payer OTHER, MEDICAID ==
[~2019-02-23] MED LIST changes: +COLA100C5 PO; +HYDR-3363 PO; +PERCOCET PO
[2019-02-23 12:57] LABS: BASO % 0.2 % (0.0-1.0); EOS # 0.1 10^3/uL (0.0-0.50); EOS % 1.4 % (0.0-3.0); HEMATOCRIT 32.9 % (36.0-47.0); HEMOGLOBIN 10.9 g/dl (12.0-15.5); LYMPH # 2.3 10^3/uL (1.5-6.5); LYMPH % 27.4 % (24.0-44.0); MEAN CORPUSCULAR HEMOGLOBIN 27.7 pg (27.0-33.0); MEAN CORPUSCULAR HGB CONC 33.1 g/dl (32.0-36.5); MEAN CORPUSCULAR VOLUME 83.7 fl (80.0-96.0); MONO % 11.5 % (0.0-5.0); NEUTROPHILS # 4.9 10^3/uL (1.8-7.7); NEUTROPHILS % 59.1 % (36.0-66.0); PLATELET COUNT, AUTOMATED 473 10^3/uL (150-450); RED BLOOD COUNT 3.93 10^6/uL (4.00-5.40); WHITE BLOOD COUNT 8.3 10^3/uL (4.0-10.0)
[2019-02-23 13:07] LABS: ALBUMIN 3.5 GM/DL (3.2-5.2); ALT/SGPT 14 U/L (12-78); BILIRUBIN,TOTAL 0.6 MG/DL (0.2-1.0); BLOOD UREA NITROGEN 10 MG/DL (7-18); CALCIUM LEVEL 9.2 MG/DL (8.5-10.1); CARBON DIOXIDE LEVEL 26 MEQ/L (21-32); CHLORIDE LEVEL 105 MEQ/L (98-107); CHOLESTEROL LEVEL 216 MG/DL (<200); CHOLESTEROL RISK RATIO 7.448 (<5); CREATININE FOR GFR 0.69 MG/DL (0.55-1.30); FREE T4 1.31 NG/DL (0.78-1.33); GLUCOSE, FASTING 89 MG/DL (70-100); HDL CHOLESTEROL 29 MG/DL (>40); LDL CHOLESTEROL 163 MG/DL (<100); NON-HDL-C 187 MG/DL; POTASSIUM SERUM 3.8 MEQ/L (3.5-5.1); SODIUM LEVEL 141 MEQ/L (136-145); TRIGLYCERIDES LEVEL 119 MG/DL (<150)
[2019-02-23 13:09] LABS: TOTAL 25(OH) VITAMIN D 18.7 NG/ML (30.0-100.0)
[2019-02-23 13:32] LABS: HEMOGLOBIN A1c 4.7 %
[2019-02-25 00:07] LABS: Lyme Disease IgG/IgM Antibodie <0.91 ISR (0.00-0.90); Lyme Disease IgM Ab Quantitati <0.80 index (0.00-0.79)
== END ==
LOC: M LAB REF 12:35
PROVIDERS: ATTEND Family Medicine
DX: Z00.01 Encounter for general adult medical examination with abnormal findings (principal); Z13.228 Encounter for screening for other metabolic disorders